=== PATIENT | male | born 1955 | race American Indian/Alaskan Native ===

== ENCOUNTER 2019-11-01 11:10 | Emergency (ER) | payer MEDICARE, OTHER ==
[2019-11-01] MEDS ORDERED: ACETAMINOPHEN 500 MG TAB PO ONE (13:18)
[2019-11-01] MEDS ORDERED: CEFEPIME/NS 2 GM/100 ML 2 GM/100 ML BAG IV ONE (14:03)
[2019-11-01] MEDS ORDERED: VANCOMYCIN 2,000 MG in SODIUM CHLORIDE 0.9% 500 ML 500 ML IV ONE (14:03)
--- NOTE | 2019-11-01 14:07 | XRay Report ---
CHEST 1 VIEW INDICATION: cough. COMPARISON: None available. FINDINGS: Support devices: None. Heart: Mild cardiomegaly. Pulmonary vasculature: Normal. Lungs/Pleura: Rounded consolidation in the left upper lobe and lingula with possible cavitation. Foca l opacification of the right costophrenic angle. Additional findings: None. IMPRESSION: 1. Left upper lobe pneumonia with consolidation and possible cavitation. 2. Possible right lower lobe pneumonia. 3. Cardiomegaly but no CHF. Signer Name: Romie Jara MD Signed: 11/01/2019 2:02 PM Workstation Name: [id number]
[2019-11-01 14:18] VITALS: BP 149/63
--- NOTE | 2019-11-01 14:40 | Emergency Department Report ---
ED Fever HPI - General Chief Complaint: Dyspnea/Respdistress Stated Complaint: FEVER/COUGH/NASAL CONGESTION Time Seen by Provider: 11/01/19 12:18 - History of Present Illness Initial Comments: 64-year-old male with history of hypertension, glaucoma, epilepsy, CVA, diabetes, presents to ED from retirement with fever and URI symptoms. Mom reports patient has fever of 101.4 today. Reports occasional moist cough with nasal congestion. Patient was "leave of absence "with family from 10/28/2019 until the evening of 10/29/2019. Timing/Duration: yesterday Fever Severity/Quality: greater than 100.5 F Associated Symptoms: cough ED Review of Systems ROS: Stated complaint: FEVER/COUGH/NASAL CONGESTION Other details as noted in HPI Comment: All other systems reviewed and negative Constitutional: fever ENT: congestion Respiratory: cough ED Past Medical Hx - Past Medical History Previous Medical History?: Yes Hx Hypertension: Yes Hx CVA: Yes (2 Strokes) Hx Diabetes: Yes - Surgical History Past Surgical History?: Yes Additional Surgical History: Right testicle - Social History Smoking Status: Never Smoker Substance Use Type: None ED Physical Exam - General Limitations: No Limitations General appearance: alert, in no apparent distress - Head Head exam: Present: atraumatic, normocephalic - Eye Eye exam: Present: normal appearance - ENT ENT exam: Present: mucous membranes moist - Neck Neck exam: Present: normal inspection - Respiratory Respiratory exam: Present: decreased breath sounds - Cardiovascular Cardiovascular Exam: Present: regular rate, normal rhythm - GI/Abdominal GI/Abdominal exam: Present: soft. Absent: distended, tenderness - Extremities Exam Extremities exam: Present: normal inspection - Neurological Exam Neurological exam: Present: alert - Psychiatric Psychiatric exam: Present: normal affect, normal mood - Skin Skin exam: Present: warm, dry, intact, normal color ED Course Vital Signs 11/01/19 11/01/19 11:30 14:11 Temperature 100.7 F H 101.1 F H Pulse Rate 79 77 Respiratory 23 20 Rate Blood Pressure 151/72 149/63 [Right] O2 Sat by Pulse 94 93 Oximetry ED Medical Decision Making - Lab Data Result diagrams: 11/01/19 14:42 11/01/19 14:42 - Radiology Data Radiology results: report reviewed, image reviewed - Differential Diagnosis pneumonia, flu, bronchitis Critical care attestation.: If time is entered above; I have spent that time in minutes in the direct care of this critically ill patient, excluding procedure time. ED Disposition Clinical Impression: Pneumonia Disposition: [id number] OP ADMIT IP TO THIS HOSP Is pt being admited?: Yes Condition: Stable Instructions: Bacterial Pneumonia (ED) Referrals: PRIMARY CARE, [Primary Care Provider] - 3-5 Days Time of Disposition: 16:48
[2019-11-01 15:20] LABS: Hematocrit 33.4 % (35.5-45.6); Hemoglobin 11.1 gm/dl (11.8-15.2); Mean Corpuscular HGB Conc 33 % (32-34); Mean Corpuscular Volume 93 fl (84-94); Platelet Count 140 K/mm3 (140-440); Red Blood Count 3.59 M/mm3 (3.65-5.03)
[2019-11-01 15:31] LABS: Alanine Aminotransferase 7 units/L (7-56); Albumin 3.6 g/dL (3.9-5); BUN/Creatinine Ratio 12; Blood Urea Nitrogen 12 mg/dL (9-20); Calcium 8.6 mg/dL (8.4-10.2); Hemolysis Index 0
[2019-11-01 16:18] LABS: Eosinophils % (Manual) 0 % (0.0-4.3); Total Cells Counted 100
[2019-11-01 16:22] LABS: Anisocytosis 1+; Hypochromasia Few; Ovalocytes Few; Platelet Estimate Consistent w Auto
--- NOTE | 2019-11-01 16:29 | Cat Scan Report ---
CT chest wo con INDICATION: cough, fever. TECHNIQUE: All CT scans at this location are performed using CT dose reduction for ALARA by means of automated e xposure control. COMPARISON: None available. FINDINGS: No significant mediastinal, hilar or axillary adenopathy on this noncontrast exam. Small bilateral ax illary nodes are thought to be within normal limits. Images through the upper abdomen show ascites an d suggestion of cirrhotic liver. Small right pleural effusion. Fairly extensive parenchymal disease is demonstrated throughout much of the left lung, consistent with pneumonia. Right lung is clear of acute disease. No skeletal lesions. IMPRESSION: 1. Extensive left lung pneumonia. 2. Small right pleural effusion, of uncertain etiology. Signer Name: Jimmy Vasquez MD Signed: 11/01/2019 4:25 PM Workstation Name: [id number]
== END 2019-11-01 19:51 | disposition admitted as inpatient to this hospital (09) ==
LOC: ED 11:10 → 4A 17:16 → UNDOADMIN 17:16
DX: J18.9 Pneumonia, unspecified organism (principal); I10 Essential (primary) hypertension; E11.9 Type 2 diabetes mellitus without complications; Z86.73 Personal history of transient ischemic attack (TIA), and cerebral infarction without residual deficits
CPT/HCPCS: 71045; 71250; 80053; 82140; 83880; 84484; 85025; 87040; 87400; 96365; 96366; 96368; 99285; J0692; J3370; J7040